=== PATIENT | female | born 1935 | race Caucasian/White ===

== ENCOUNTER 2017-12-27 09:09 | Emergency (ER) | payer MEDICARE ==
[2017-12-27 09:44] VITALS: BP 103/47
--- NOTE | 2017-12-27 10:04 | UC ---
Abdominal Pain Female HPI - HPI Summary HPI Summary: Patient is an 82-year-old female that presents here for evaluation of hematemesis. She states she was at work yesterday and had 1 episode of vomiting bright red blood. She states that she has had chronic right lower quadrant abdominal pain for several months. She states that her right lower quadrant abdominal pain is worse since her episode of vomiting. She states that she has had "" gooey diarrhea. She has had no fever. He has mild dizziness. He has a history of nonalcoholic cirrhosis. - History of Current Complaint Chief Complaint: UCGI Stated Complaint: STOMACH ACHE,VOMITING Time Seen by Provider: 12/27/17 09:50 Hx Obtained From: Patient Onset/Duration: Gradual Onset Timing: Constant Severity Initially: Severe Severity Currently: Severe Pain Intensity: 8 Pain Scale Used: 0-10 Numeric Location: Discrete At: RLQ Radiates: No Character: Aching Alleviating Factor(s): Nothing Associated Signs and Symptoms: Positive: Vomiting - x1 Female Torso: 1 - pain Allergies/Adverse Reactions: Allergies Allergy/AdvReac Type Severity Reaction Status Date / Time Penicillins Allergy Severe Anaphylatic Verified 12/27/17 09:45 Shock Home Medications: Home Medications Amiodarone TAB* [Cordarone TAB*] 200 mg PO DAILY 12/27/17 [History Confirmed 02/03] Furosemide TAB* [Lasix TAB*] 20 mg PO DAILY 12/27/17 [History Confirmed 12/27/17 ] Nadolol (NF) 20 mg PO DAILY 12/27/17 [History Confirmed 12/27/17] Obeticholic Acid [Ocaliva] 5 mg PO DAILY 12/27/17 [History Confirmed 12/27/17] Omeprazole CAP* [Prilosec CAP* 20 MG] 20 mg PO DAILY 12/27/17 [History Confirmed 12/27/17] Spironolactone [Aldactone 100 MG-] 100 mg PO DAILY 12/27/17 [History Confirmed 12/27/17] Ursodiol CAP* [Actigall CAP 300 MG*] 300 mg PO BID 12/27/17 [History Confirmed 12/27/17] PMH/Surg Hx/FS Hx/Imm Hx Cardiovascular History: Hypertension GI/ History: Other Other GI/ History: cirrhosis - Surgical History Surgical History: Yes Surgery Procedure, Year, and Place: Umbilicus hernia repair 02/2018 - Family History Known Family History: Positive: Hypertension - Social History Alcohol Use: None Substance Use Type: None Smoking Status (MU): Never Smoked Tobacco Review of Systems Constitutional: Negative Skin: Negative Eyes: Negative ENT: Negative Respiratory: Negative Cardiovascular: Negative Gastrointestinal: Abdominal Pain, Vomiting Genitourinary: Negative Motor: Negative Neurovascular: Negative Musculoskeletal: Negative Neurological: Negative Psychological: Negative All Other Systems Reviewed And Are Negative: Yes Physical Exam Triage Information Reviewed: Yes Appearance: Well-Appearing, No Pain Distress, Well-Nourished Vital Signs: Initial Vital Signs Temp 97.8 F 12/27/17 09:34 Pulse 51 12/27/17 09:34 Resp 16 12/27/17 09:34 BP 103/47 12/27/17 09:34 Pulse Ox 100 12/27/17 09:34 Vital Signs Reviewed: Yes Eyes: Positive: Conjunctiva Clear ENT: Negative: Hearing grossly normal, Nasal congestion, Nasal drainage, Trismus , Muffled voice, Hoarse voice Neck: Positive: Supple Respiratory: Positive: Lungs clear, Normal breath sounds, No respiratory distress, No accessory muscle use Cardiovascular: Positive: RRR, Bradycardia Abdomen Description: Negative: Nontender - tender RLQ Bowel Sounds: Positive: Present Musculoskeletal: Positive: Edema @ - L LE Psychological Exam: Normal Skin Exam: Normal Abd Pain Female Course/Dx - Course Course Of Treatment: declines EMS transfer. D/W Dr. Olivarez [facility] ER - Differential Dx/Diagnosis Provider Diagnoses: abdominal pain. Upper GI bleed Discharge - Sign-Out/Discharge Documenting (check all that apply): Patient Departure All imaging exams completed and their final reports reviewed: No Studies - Discharge Plan Condition: Stable Disposition: TRANS HIGHER [facility] Referrals: Chip Iniguez MD [Primary Care Provider] - Additional Instructions: to [facility] ER for evaluation of bloody vomitus - Billing Disposition and Condition Condition: STABLE Disposition: Trans Higher [facility] Fac
== END 2017-12-27 10:02 | disposition short-term general hospital (02) ==
LOC: UCCORT 09:09
DX: R10.31 Right lower quadrant pain (principal); K92.2 Gastrointestinal hemorrhage, unspecified; K74.60 Unspecified cirrhosis of liver; I10 Essential (primary) hypertension
CPT/HCPCS: 99202; G0463